=== PATIENT | female | born 1950 | race Caucasian/White ===

== ENCOUNTER 2017-12-04 05:59 | Observation (INO) | payer MEDICARE, MEDICAID ==
[~2017-12-04] VITALS: Ht 160 cm; Wt 53.1 kg
[~2017-12-04 05:59] MED LIST changes: -ALB6.7R INH; -HYDR-4228 PO; -LORA-629 PO; -PRED20TA6 PO
[2017-12-04] MEDS ORDERED: LORA-629 PO (06:19)
[2017-12-04] MEDS ORDERED: HYDR-4228 PO ×2 (06:19→21:04)
--- NOTE | 2017-12-04 06:26 | ER Report ---
History and Physical Time Seen By MD: 06:26 Hx. of Stated Complaint: PATIENT HAS BEEN HAVING TROUBLE BREATHING FOR THE LAST DAY, HAS BEEN USING HER ALBUTEROL INHALER MORE FREQUENTLY BUT IT HASN'T BEEN HELPING HER. PATIENT HAS HX OF COPD. (BEATRIS WHITE MD) HPI/ROS CHIEF COMPLAINT: shortness of breath. HISTORY OF PRESENT ILLNESS: This is a 67 year old female. She is having shortness of breath over the last 24-48 hours. Increased use of albuterol during that time. This morning not helping as well. EMS provided a breathing treatment en route which helped. She takes Advair as well. No oral steroids. She still smokes and is trying to quit; currently at 1 ppd. No fever or chills. Chronic cough which is worse, but non-productive. Chest tightness, but no pain. REVIEW OF SYSTEMS: Constitutional: As above. Eyes: No vision changes. ENT: No sore throat. No congestion. Cardiovascular: As above. Respiratory: As above. Gastrointestinal: No abdominal pain. No nausea or vomiting. Genitourinary: No dysuria. Musculoskeletal: No musculoskeletal pain. Skin: No rashes. Neurological: No numbness. No weakness. (BEATRIS WHITE MD) Allergies: Coded Allergies: latex (Verified Adverse Reaction, Mild, 12/04/17) Home Meds Reported Medications Hydroxyzine Hcl (HYDROXYZINE HCL) 50 Mg Tablet, 25-50 MG PO HS Y for SLEEP 12/04/17 Loratadine (LORATADINE) 10 Mg Tablet, 10 MG PO QDAY 12/04/17 Hydroxyzine Hcl (HYDROXYZINE HCL) 50 Mg Tablet, 2 TAB PO HS 12/04/17 Methocarbamol (METHOCARBAMOL) 500 Mg Tablet, 1 TAB PO BID Y for MUSCLE SPASMS 08/06/17 Nystatin (Nystatin) 100,000 Unit/Ml Oral.susp, 1 ML PO QDAY Y for THRUSH 08/06/17 Gabapentin (GABAPENTIN) 300 Mg Capsule, 300 MG PO BID 08/06/17 Fluticasone/Salmeterol (ADVAIR HFA 115-21 MCG INHALER) 12 Gm Hfa.aer.ad, 1-2XD 08/06/17 Montelukast Sodium (MONTELUKAST SODIUM) 10 Mg Tablet, 1 TAB PO QDAY 08/06/17 Tiotropium [place] (Spiriva Respimat) 4 Gm Mist.inhal, DAILY 08/06/17 Venlafaxine Hcl (EFFEXOR XR) 150 Mg Cap.er.24h, 300 MG PO QDAY 08/06/17 Discontinued Reported Medications Loratadine (LORATADINE) 10 Mg Tablet 08/06/17 Hydroxyzine Pamoate (HYDROXYZINE PAMOATE) 50 Mg Capsule, 1 PO QDAY for Anxiety 08/06/17 Discontinued Scripts Lorazepam (ATIVAN) 0.5 Mg Tablet, 0.5 MG PO TID Y for ANXIETY, #15 Prov:SALVATORE MONTEIRO DO 08/06/17 Prednisone 10 Mg Tab (PREDNISONE 10 MG TAB) 10 Mg Tablet, 10 MG PO QDAY Y for reduce lung inflammation, #9 2 tabs daily for 3 days 1 tab daily for 3 days Prov:SALVATORE MONTEIRO DO 08/06/17 Cefuroxime Axetil (CEFUROXIME) 250 Mg Tablet, 250 MG PO BID for infection, #14 TAB Prov:SALVATORE MONTEIRO DO 08/06/17 Reviewed Nurses Notes: Yes (BEATRIS WHITE MD) Hx Smoking: Yes (1-2 PPD) Smoking Status: Current: Every Day Smoker Exposure to Second Hand Smoke?: Yes Hx Substance Use Disorder: Yes Hx Alcohol Use: Yes (RECOVERING ALCOHOLIC) (BEATRIS WHITE MD) Constitutional Vital Sign - Last 24 Hours 12/04/17 12/04/17 12/04/17 12/04/17 06:01 06:10 06:14 06:15 Temp 97.0 Pulse 99 ??? Resp 28 B/P (MAP) 192/89 154/105 (121) Pulse Ox 88 95 O2 Delivery Nasal Cannula O2 Flow Rate 3.0 12/04/17 12/04/17 12/04/17 12/04/17 06:29 06:30 06:35 06:35 Pulse 89 85 Resp 28 B/P (MAP) 153/91 (111) Pulse Ox 94 91 O2 Delivery Nasal Cannula O2 Flow Rate 3.0 12/04/17 12/04/17 12/04/17 12/04/17 06:44 06:45 06:47 07:15 Pulse 86 85 18 B/P (MAP) 151/79 (103) 167/79 (108) Pulse Ox 98 312/04/17 12/04/17 12/04/17 07:30 07:45 08:00 08:03 Pulse 87 B/P (MAP) 163/84 (110) 170/86 (114) 159/80 (106) Pulse Ox 91 91 O2 Delivery Nasal Cannula O2 Flow Rate 3.0 12/04/17 12/04/17 12/04/17 12/04/17 08:03 08:08 08:15 08:35 Pulse 89 87 Resp 16 16 B/P (MAP) 162/78 (106) 162/75 (104) 12/04/17 12/04/17 12/04/17 12/04/17 09:00 09:12 09:12 09:30 Pulse 90 92 91 Resp 16 Pulse Ox 93 91 98 O2 Delivery Nasal Cannula O2 Flow Rate 3.0 12/04/17 12/04/17 12/04/17 12/04/17 09:35 09:55 10:00 10:15 Pulse 94 101 Resp 16 B/P (MAP) 173/77 (109) 174/92 (119) 167/74 (105) 12/04/17 12/04/17 12/04/17 12/04/17 10:30 10:45 11:00 11:19 Pulse 94 94 98 Resp 16 B/P (MAP) 147/69 (95) 150/68 (95) 135/78 (97) Pulse Ox 95 93 12/04/17 12/04/17 12/04/17 12/04/17 11:19 11:21 11:21 11:30 Pulse 93 92 Resp 16 Pulse Ox 90 97 92 O2 Delivery Nasal Cannula Nasal Cannula O2 Flow Rate 3.0 3.0 12/04/17 12/04/17 11:32 11:45 Pulse 89 B/P (MAP) 146/77 (100) 163/77 (105) Pulse Ox 90 (VERONICA CALDERA MD) Physical Exam General Appearance: The patient is alert. No acute distress. Eyes: Pupils are equal, round. No pallor, injection or icterus. ENT: Mucous membranes are moist. Normal oral mucosa. Posterior oropharynx is normal. Neck: Supple and non tender. No lymphadenopathy. Respiratory: Lungs with rhonchi and expiratory wheezing. No retractions or accessory muscle use. Cardiovascular: Regular rate and rhythm. Has a chronic systolic murmur. Normal capillary refill. No edema. Gastrointestinal: Abdomen is soft, nontender. Nondistended. Normal active bowel sounds. Neurological: Alert and oriented x3. No focal neurologic deficits Skin: Warm and dry. DIFFERENTIAL DIAGNOSIS: After history and physical exam, differential diagnosis was considered for shortness of breath including but not limited to pulmonary infectious process, COPD, asthma, pulmonary embolus and congestive heart failure. ([facility] Medical Decision Making Data Points Result Diagram: 12/04/17 0650 12/04/17 0650 Laboratory Hematology Test 12/04/17 06:50 12/04/17 08:27 Red Blood Count 4.69 M/uL (4.17-5.56) Mean Corpuscular Volume 87.1 fL (80.0-96.0) Mean Corpuscular Hemoglobin 29.9 pg (26.0-33.0) Mean Corpuscular Hemoglobin Concent 34.4 g/dL (32.0-36.0) Red Cell Distribution Width 13.5 % (11.5-14.5) Mean Platelet Volume 7.8 fL (7.2-11.1) Neutrophils (%) (Auto) 69.4 % (39.4-72.5) Lymphocytes (%) (Auto) 18.9 % (17.6-49.6) Monocytes (%) (Auto) 9.4 % (4.1-12.4) Eosinophils (%) (Auto) 1.5 % (0.4-6.7) Basophils (%) (Auto) 0.8 % (0.3-1.4) Nucleated RBC Relative Count (auto) 0.0 /100WBC Neutrophils # (Auto) 5.6 K/uL (2.0-7.4) Lymphocytes # (Auto) 1.5 K/uL (1.3-3.6) Monocytes # (Auto) 0.8 K/uL (0.3-1.0) Eosinophils # (Auto) 0.1 K/uL (0.0-0.5) Basophils # (Auto) 0.1 K/uL (0.0-0.1) Nucleated RBC Absolute Count (auto) 0.00 K/uL Sodium Level 134 mmol/L (137-145) Potassium Level 4.2 mmol/L (3.5-5.0) Chloride Level 92 mmol/L (98-107) Carbon Dioxide Level 33 mmol/L (22-31) Blood Urea Nitrogen 15 mg/dl (7-18) Creatinine 0.60 mg/dl (0.52-1.04) Glomerular Filtration Rate Calc > 60.0 Random Glucose 102 mg/dl (75-110) Calcium Level 10.0 mg/dl (8.4-10.2) Total Bilirubin 0.4 mg/dl (0.2-1.3) Aspartate Amino Transf (AST/SGOT) 28 U/L (0-35) Alanine Aminotransferase (ALT/SGPT) 35 U/L (0-56) Alkaline Phosphatase 87 U/L (0-126) Troponin I < 0.012 ng/ml Total Protein 8.3 gm/dl (6.3-8.2) Albumin 4.3 g/dl (3.5-5.0) Urine Color Yellow Urine Clarity Clear Urine pH 6.0 pH (4.8-9.5) Urine Specific [place] 1.010 Urine Protein Negative mg/dL (NEGATIVE) Urine Glucose (UA) Negative mg/dL (NEGATIVE) Urine Ketones Negative mg/dL (NEGATIVE) Urine Blood Negative (NEGATIVE) Urine Nitrite Negative (NEGATIVE) Urine Bilirubin Negative (NEGATIVE) Urine Urobilinogen Negative mg/dL (0.2-1.9) Urine Leukocyte Esterase Trace (NEGATIVE) Urine RBC <1 /HPF (0-2/HPF) Urine WBC 2 /HPF (0-5/HPF) Urine Squamous Epithelial Cells None /LPF (</=FEW) Urine Transitional Epithelial Cells Moderate /LPF (NONE-FEW) Urine Bacteria Few /HPF (NONE-FEW) Urine Hyaline Casts Few /LPF (NONE-FEW) Urine Mucus None /HPF (NONE-FEW) Chemistry Test 12/04/17 06:50 12/04/17 08:27 White Blood Count 8.0 k/uL (4.5-11.0) Red Blood Count 4.69 M/uL (4.17-5.56) Hemoglobin 14.0 g/dL (12.0-16.0) Hematocrit 40.8 % (34.0-47.0) Mean Corpuscular Volume 87.1 fL (80.0-96.0) Mean Corpuscular Hemoglobin 29.9 pg (26.0-33.0) Mean Corpuscular Hemoglobin Concent 34.4 g/dL (32.0-36.0) Red Cell Distribution Width 13.5 % (11.5-14.5) Platelet Count 164 K/uL (150-450) Mean Platelet Volume 7.8 fL (7.2-11.1) Neutrophils (%) (Auto) 69.4 % (39.4-72.5) Lymphocytes (%) (Auto) 18.9 % (17.6-49.6) Monocytes (%) (Auto) 9.4 % (4.1-12.4) Eosinophils (%) (Auto) 1.5 % (0.4-6.7) Basophils (%) (Auto) 0.8 % (0.3-1.4) Nucleated RBC Relative Count (auto) 0.0 /100WBC Neutrophils # (Auto) 5.6 K/uL (2.0-7.4) Lymphocytes # (Auto) 1.5 K/uL (1.3-3.6) Monocytes # (Auto) 0.8 K/uL (0.3-1.0) Eosinophils # (Auto) 0.1 K/uL (0.0-0.5) Basophils # (Auto) 0.1 K/uL (0.0-0.1) Nucleated RBC Absolute Count (auto) 0.00 K/uL Glomerular Filtration Rate Calc > 60.0 Calcium Level 10.0 mg/dl (8.4-10.2) Total Bilirubin 0.4 mg/dl (0.2-1.3) Aspartate Amino Transf (AST/SGOT) 28 U/L (0-35) Alanine Aminotransferase (ALT/SGPT) 35 U/L (0-56) Alkaline Phosphatase 87 U/L (0-126) Troponin I < 0.012 ng/ml Total Protein 8.3 gm/dl (6.3-8.2) Albumin 4.3 g/dl (3.5-5.0) Urine Color Yellow Urine Clarity Clear Urine pH 6.0 pH (4.8-9.5) Urine Specific [place] 1.010 Urine Protein Negative mg/dL (NEGATIVE) Urine Glucose (UA) Negative mg/dL (NEGATIVE) Urine Ketones Negative mg/dL (NEGATIVE) Urine Blood Negative (NEGATIVE) Urine Nitrite Negative (NEGATIVE) Urine Bilirubin Negative (NEGATIVE) Urine Urobilinogen Negative mg/dL (0.2-1.9) Urine Leukocyte Esterase Trace (NEGATIVE) Urine RBC <1 /HPF (0-2/HPF) Urine WBC 2 /HPF (0-5/HPF) Urine Squamous Epithelial Cells None /LPF (</=FEW) Urine Transitional Epithelial Cells Moderate /LPF (NONE-FEW) Urine Bacteria Few /HPF (NONE-FEW) Urine Hyaline Casts Few /LPF (NONE-FEW) Urine Mucus None /HPF (NONE-FEW) Urinalysis Test 12/04/17 08:27 Urine Color Yellow Urine Clarity Clear Urine pH 6.0 pH (4.8-9.5) Urine Specific [place] 1.010 Urine Protein Negative mg/dL (NEGATIVE) Urine Glucose (UA) Negative mg/dL (NEGATIVE) Urine Ketones Negative mg/dL (NEGATIVE) Urine Blood Negative (NEGATIVE) Urine Nitrite Negative (NEGATIVE) Urine Bilirubin Negative (NEGATIVE) Urine Urobilinogen Negative mg/dL (0.2-1.9) Urine Leukocyte Esterase Trace (NEGATIVE) Urine RBC <1 /HPF (0-2/HPF) Urine WBC 2 /HPF (0-5/HPF) Urine Squamous Epithelial Cells None /LPF (</=FEW) Urine Transitional Epithelial Cells Moderate /LPF (NONE-FEW) Urine Bacteria Few /HPF (NONE-FEW) Urine Hyaline Casts Few /LPF (NONE-FEW) Urine Mucus None /HPF (NONE-FEW) (VERONICA CALDERA MD) EKG/Imaging EKG Interpretation 12 lead EKG: Rhythm: normal sinus rhythm, rate 84 [place]: normal QRS: normal ST segments: Nonspecific flattening, significant artifact (BEATRIS WHITE MD) Imaging FACILITY: [facility] - [place] PATIENT NAME: Olimpia Wyatt : 1950 MR: [id number] V: [id number] EXAM DATE: ORDERING PHYSICIAN: BEATRIS WHITE TECHNOLOGIST: Location: [facility] [place] Patient: Olimpia Wyatt : 1950 Visit/Account:[id number] Date of Sevice: 12/04/2017 2 VIEWS CHEST INDICATION: Respiratory distress. History of COPD. COMPARISON: October 09, 2016. FINDINGS: Heart size within normal limits. Calcification within the aortic knob. There is no focal infiltrate or lobar consolidation. Hyperexpansion the lungs with chronic interstitial changes. There is no pneumothorax or pleural effusion. IMPRESSION: 1. No acute cardiopulmonary process. 2. Hyperexpansion of the lungs with chronic interstitial changes compatible with history of COPD. Report Dictated By: Jose Dhillon MD at 12/04/2017 7:19 AM Report E-Signed By: Jose Dhillon MD at 12/04/2017 7:20 AM WSN:[id number] (VERONICA CALDERA MD) ED Course/Re-evaluation Clinical Indication for ER IV: IV Access ([facility] ED Course 12/04/2017 8:12:49 am evaluated patient after 2nd nebulizer breathing treatment. She is still doing some pursed lip breathing and only able to talk in 3-4 word sentences without taking a breath. According to the respiratory therapist her lungs sound improved from when she arrived in the emergency department. Patient has received 2 DuoNeb at this time along with 125mg of solumedrol. Spo2 on 95% on O2 by [place]. Plan will be to ambulate patient in 15-20 minutes with pulse ox Re-evaluation 12/04/2017 8:56:45 am patient was ambulated at this time with her normal home oxygen. She was able to walk approximately 25 feet and then saturation dropped to 74% on ambulatory pulse ox. Patient remained consistently in the mid 70s while in the waiting back to the room. Her saturation improved once exertion was discontinued. We will give one more breathing treatment and again try to inflate the patient. If she fails ambulation I suspect patient may require admission for COPD exacerbation 12/04/2017 9:15:19 am peak flow 60 L/m which is 16% of predicted. Decision to Disposition Date: Dec 04, 2017 Decision to Disposition Time: 10:30 (VERONICA CALDERA MD) Depart Departure Latest Vital Signs Vital Signs Date Time Temp Pulse Resp B/P (MAP) Pulse Ox O2 Delivery O2 Flow Rate FiO2 12/04/17 11:45 89 163/77 (105) 90 12/04/17 11:21 16 12/04/17 11:21 Nasal Cannula 3.0 12/04/17 06:01 97.0 (VERONICA CALDERA MD) Impression: Primary Impression: COPD exacerbation Condition: Improved Disposition: Admitted from ER (to Dr Avila) Referrals: TESSY KEATING (PCP) BEATRIS WHITE MD Dec 04, 2017 06:26 VERONICA CALDERA MD Dec 04, 2017 07:50
[2017-12-04] MEDS ORDERED: ALBUTEROL/IPRATROPIUM 3 ML NEB NEB ONE ×3 (06:35→09:00)
[2017-12-04] MEDS ORDERED: methylPREDNIS SUCC 125 MG/2ML IVP ONE (06:35)
--- NOTE | 2017-12-04 06:46 | EKG ---
FACILITY: [facility] - [place] PATIENT NAME: LESLEY SWEENEY : [id number] MR: [id number] V: [id number] EXAM DATE: ORDERING PHYSICIAN: BEATRIS WHITE TECHNOLOGIST: Domingo Greer Reason : Blood Pressure : / mmHG Vent. Rate : 084 BPM Atrial Rate : 084 BPM P-R Int : 166 ms QRS Dur : 072 ms QT Int : 356 ms P-R-T Axes : 081 042 050 degrees QTc Int : 420 ms Normal sinus rhythm Possible Left atrial enlargement Possible Anterolateral infarct , old (cited on or before 04-DEC-2017) When compared with ECG of 06-AUG-2017 18:22, R progression from V1-V6 is much more prominent now. Confirmed by SHEN BEATTY ([id number]) on 12/04/2017 1:35:12 PM Referred By: Confirmed By:SHEN BEATTY
[2017-12-04 07:10] LABS: PLATELET COUNT, AUTOMATED 164 K/uL (150-450)
--- NOTE | 2017-12-04 07:25 | RADIOLOGY IMAGING REPORT ---
FACILITY: [facility] - [place] PATIENT NAME: Olimpia Wyatt : 1950 MR: [id number] V: [id number] EXAM DATE: ORDERING PHYSICIAN: BEATRIS WHITE TECHNOLOGIST: [place] [facility] [place]limpia Wyatt : 1950 Visit/Account:[id number] Date of Sevice: 12/04/2017 2 VIEWS CHEST INDICATION: Respiratory distress. History of COPD. COMPARISON: October 09, 2016. FINDINGS: Heart size within normal limits. Calcification within the aortic knob. There is no focal infiltrate or lobar consolidation. Hyperexpansion the lungs with chronic intersti tial changes. There is no pneumothorax or pleural effusion. IMPRESSION: 1. No acute cardiopulmonary process. 2. Hyperexpansion of the lungs with chronic interstitial changes compatible with history of COPD. Report Dictated By: Jose Dhillon MD at 12/04/2017 7:19 AM Report E-Signed By: Jose Dhillon MD at 12/04/2017 7:20 AM WSN:[id number]
[2017-12-04] MEDS ORDERED: ALBUTEROL 2.5 MG/0.5ML ER ONLY NEB ONE ×3 (09:05→13:10)
[2017-12-04] MEDS ORDERED: ALBUTEROL 2.5 MG/3 ML NEB ONE (09:07)
[2017-12-04] MEDS ORDERED: TIOTROPIUM BROM INH 18 MCG/CAP INH ONE (13:10)
[2017-12-04] MEDS ORDERED: SALMETEROL/FLUTIC 250/50 1 INH INH ONE (13:10)
[2017-12-04 14:33] VITALS: BP 160/73
[2017-12-04] MEDS ORDERED: ALBUTEROL 2.5 MG/3 ML NEB NEB PRN (15:40)
[2017-12-04] MEDS ORDERED: FLUSH 10 ML SYR IVP PRN (15:40)
[2017-12-04] MEDS ORDERED: ACETAMINOPHEN 325 MG TAB PO PRN (15:40)
[2017-12-04] MEDS ORDERED: SALINE 0.65% NAS SPR 44 ML BTL PRN (15:50)
--- NOTE | 2017-12-04 15:57 | History & Physical ---
History of Present Illness Chief Complaint Short of breath History of Present Illness 67yo female with PMHx significant for COPD, previous alcohol use/abuse (no alcohol for >18years). She reports increasing dyspnea, cough over the past several days. She has along history of cigarette smoking and continues to do so. She denies any fevers/chills. She denies any CP/palpitations. No orthopnea or PND. She denies any edema or weight gain. She was evaluated in the ER and found to be hypoxic with evidence of airway obstruction/reactivity. CXR showed hyperexpansion, but no infiltrate. She was given respiratory treatments with little improvement. She was recommended for admission. History Problems: (1) COPD (chronic obstructive pulmonary disease) Status: Chronic (2) Anxiety Status: Chronic Home Meds Reported Medications Loratadine (LORATADINE) 10 Mg Tablet, 10 MG PO QDAY 12/04/17 Hydroxyzine Hcl (HYDROXYZINE HCL) 50 Mg Tablet, 2 TAB PO HS 12/04/17 Methocarbamol (METHOCARBAMOL) 500 Mg Tablet, 1 TAB PO BID Y for MUSCLE SPASMS 08/06/17 Nystatin (Nystatin) 100,000 Unit/Ml Oral.susp, 1 ML PO QDAY Y for THRUSH 08/06/17 Gabapentin (GABAPENTIN) 300 Mg Capsule, 300 MG PO BID 08/06/17 Fluticasone/Salmeterol (ADVAIR HFA 115-21 MCG INHALER) 12 Gm Hfa.aer.ad, 1-2XD 08/06/17 Montelukast Sodium (MONTELUKAST SODIUM) 10 Mg Tablet, 1 TAB PO QDAY 08/06/17 Tiotropium [place] (Spiriva Respimat) 4 Gm Mist.inhal, DAILY 08/06/17 Venlafaxine Hcl (EFFEXOR XR) 150 Mg Cap.er.24h, 300 MG PO QDAY 08/06/17 Discontinued Reported Medications Loratadine (LORATADINE) 10 Mg Tablet 08/06/17 Hydroxyzine Pamoate (HYDROXYZINE PAMOATE) 50 Mg Capsule, 1 PO QDAY for Anxiety 08/06/17 Discontinued Scripts Lorazepam (ATIVAN) 0.5 Mg Tablet, 0.5 MG PO TID Y for ANXIETY, #15 Prov:SALVATORE MONTEIRO DO 08/06/17 Prednisone 10 Mg Tab (PREDNISONE 10 MG TAB) 10 Mg Tablet, 10 MG PO QDAY Y for reduce lung inflammation, #9 2 tabs daily for 3 days 1 tab daily for 3 days Prov:SALVATORE MONTEIRO DO 08/06/17 Cefuroxime Axetil (CEFUROXIME) 250 Mg Tablet, 250 MG PO BID for infection, #14 TAB Prov:SALVATORE MONTEIRO DO 08/06/17 Allergies: Coded Allergies: latex (Verified Adverse Reaction, Mild, 12/04/17) Patient History: Chronic bronchitis CHILD FH: emphysema FATHER, Hx Smoking: Yes (1-2 PPD) Smoking Status: Current: Every Day Smoker Exposure to Second Hand Smoke?: Yes Hx Alcohol Use: Yes (RECOVERING ALCOHOLIC - no alcohol for >18 years) Hx Substance Use Disorder: Yes Review of Systems Constitutional: No Fever, No Chills, No Night Sweats Neurological: No Syncope, No Weakness Eyes: No Vision Change, No Loss of Vision ENT: No Hearing Loss, No Sinus Congestion, No Sore Throat Cardiovascular: No Chest Pain, No Palpitations Respiratory: Shortness of Breath, Cough, Wheezing Gastrointestinal: No Nausea, No Vomiting, No Diarrhea Genitourinary: No Dysuria, No Hematuria Psychiatric: Anxiety Exam Vital Signs Vital Signs Date Time Temp Pulse Resp B/P (MAP) Pulse Ox O2 Delivery O2 Flow Rate FiO2 12/04/17 14:39 90 Nasal Cannula 4.0 12/04/17 14:33 98.5 94 18 160/73 (102) General Appearance: Alert, Awake Neuro: No Gross deficits Eyes: PERRLA ENT: Oropharynx Clear (dentures) Neck: No Masses Cardiovascular: Regular Rate and Rhythm (no murmur), No Edema, No JVD Respiratory: Other (diminished breath sounds bilaterally with soft expiratory wheezes/no rales) Chest: No Tenderness GI: Abd Soft and Non-Tender : No CVA Tenderness Lymph: No Adenopathy Extremities: Warm, Perfused Integumentary: Skin Intact without Lesion / Mass Psych: Alert & Oriented X3 Medical Decision Making Data Points Result Diagram: 12/04/17 0650 12/04/17 0650 Assessment and Plan Problems: (1) COPD exacerbation Status: Acute Assessment & Plan: Will admit for respiratory treatments, oxygen supplementation, steroids. It does not appear she has an acute infection. We did discuss tobacco cessation and she reports the understanding of needing to stop. Will provide her nicotine supplement as needed. Watch closely. (2) Anxiety Status: Chronic Assessment & Plan: Will continue her Effexor. Copies to: TESSY KEATING Venous Thromboembolism Antithrombotics Is Pt On Any Antithrombotics?: No (will ambulate/use DINO hose) Exam Sepsis Risk: No Definite Risk ANAND SOUSA MD Dec 04, 2017 15:57
[2017-12-04] MEDS ORDERED: VENLAFAXINE XR 75 MG CAPCR PO ONE (16:00)
[2017-12-04] MEDS ORDERED: GABAPENTIN 300 MG CAP PO ONE (16:00)
[2017-12-04] MEDS: NICOTINE POLACRILEX 2 MG GUM PO PRN ×3 (16:09→23:45)
[2017-12-04] MEDS: ALBUTEROL/IPRATROPIUM 3 ML NEB NEB SCH (17:31)
[2017-12-04 19:34] VITALS: BP 149/75
[2017-12-04] MEDS ORDERED: hydrOXYzine 25 MG TAB PO PRN (21:10)
[2017-12-04] MEDS: methylPREDNIS SUCC 125 MG/2ML IVP SCH (21:35)
[2017-12-04] MEDS: GABAPENTIN 300 MG CAP PO SCH (21:36)
[2017-12-05 05:28] VITALS: BP 160/85
[2017-12-05] MEDS: ALBUTEROL/IPRATROPIUM 3 ML NEB NEB SCH ×3 (06:11→13:29)
[2017-12-05] MEDS: NICOTINE POLACRILEX 2 MG GUM PO PRN (07:50)
[2017-12-05 07:53] VITALS: BP 144/74
[2017-12-05] MEDS ORDERED: NAPROXEN 375 MG TAB PO PRN (08:15)
[2017-12-05] MEDS: methylPREDNIS SUCC 125 MG/2ML IVP SCH (08:35)
[2017-12-05] MEDS: GABAPENTIN 300 MG CAP PO SCH (08:35)
[2017-12-05] MEDS ORDERED: VENLAFAXINE XR 75 MG CAPCR PO SCH (09:00)
[2017-12-05] MEDS ORDERED: MONTELUKAST SODIUM 10 MG TAB PO SCH (09:00)
[2017-12-05] MEDS ORDERED: LORATADINE 10 MG TAB PO SCH (09:00)
[2017-12-05] MEDS ORDERED: SALMETEROL/FLUTIC 250/50 1 INH INH SCH (10:30)
[2017-12-05] MEDS ORDERED: TIOTROPIUM BROM INH 18 MCG/CAP INH SCH (10:30)
[2017-12-05] MEDS ORDERED: PRED20TA6 PO (11:58)
--- NOTE | 2017-12-05 12:05 | Hospitalist Depart ---
Discharge Summary Reason for Hosp/Final Diag: (1) COPD exacerbation Status: Acute Hospital Course & Plan: She presented with increasing dyspnea, cough over the past several days prior to admission. There was no infiltrate on CXR, the WBC was wnl and she was afebrile. She had much improvement on respiratory treatments, oxygen supplementation, and IV steroids. Discussions were had regarding tobacco cessation and she reports the understanding of needing to stop. She will go home on a prednisone taper. (2) Anxiety Status: Chronic Hospital Course & Plan: Will continue her Effexor. She was told to discuss with her PCP about further treatment options for her anxiety because the patient doesn't feel like the anxiety is well controlled. Departure Weight (Pounds): 117 Result Diagram: 12/04/17 0650 12/04/17 0650 Item Value Date Time Total Bilirubin 0.4 mg/dl 12/04/17 0650 Aspartate Amino Transf (AST/SGOT) 28 U/L 12/04/17 0650 Alanine Aminotransferase (ALT/SGPT) 35 U/L 12/04/17 0650 Alkaline Phosphatase 87 U/L 12/04/17 0650 Troponin I < 0.012 ng/ml 12/04/17 0650 Total Protein 8.3 gm/dl H 12/04/17 0650 Albumin 4.3 g/dl 12/04/17 0650 Imaging CXR - 1. No acute cardiopulmonary process. 2. Hyperexpansion of the lungs with chronic interstitial changes compatible with history of COPD. EKG Vent. Rate : 084 BPM Atrial Rate : 084 BPM P-R Int : 166 ms QRS Dur : 072 ms QT Int : 356 ms P-R-T Axes : 081 042 050 degrees QTc Int : 420 ms Normal sinus rhythm Possible Left atrial enlargement Possible Anterolateral infarct , old (cited on or before 04-DEC-2017) When compared with ECG of 06-AUG-2017 18:22, R progression from V1-V6 is much more prominent now. Confirmed by SHEN BEATTY ([id number]) on 12/04/2017 1:35:12 PM Condition: Improved Discharge: Home Discharge Instructions Home Meds Active Scripts Albuterol Sulfate (PROVENTIL HFA) 6.7 Gm Inh, 2 PUFF INH Q4H Y for SHORTNESS OF BREATH, #1 INH Prov:PAL RIVAS MD 3/17/18 Prednisone (PREDNISONE) 20 Mg Tablet, 10-20 MG PO BIDBS, #11 1 pill twice a day for 3 days, then 1 pill a day for 3 days, and then 1/2 pill a day for 3 days Prov:PAL RIVAS MD 12/05/17 Reported Medications Hydroxyzine Hcl (HYDROXYZINE HCL) 50 Mg Tablet, 25-50 MG PO HS Y for SLEEP 12/04/17 Loratadine (LORATADINE) 10 Mg Tablet, 10 MG PO QDAY 12/04/17 Methocarbamol (METHOCARBAMOL) 500 Mg Tablet, 1 TAB PO BID Y for MUSCLE SPASMS 08/06/17 Nystatin (Nystatin) 100,000 Unit/Ml Oral.susp, 1 ML PO QDAY Y for THRUSH 08/06/17 Gabapentin (GABAPENTIN) 300 Mg Capsule, 300 MG PO BID 08/06/17 Fluticasone/Salmeterol (ADVAIR HFA 115-21 MCG INHALER) 12 Gm Hfa.aer.ad, BID 08/06/17 Montelukast Sodium (MONTELUKAST SODIUM) 10 Mg Tablet, 1 TAB PO QDAY 08/06/17 Tiotropium [place] (Spiriva Respimat) 4 Gm Mist.inhal, DAILY 08/06/17 Venlafaxine Hcl (EFFEXOR XR) 150 Mg Cap.er.24h, 300 MG PO QDAY 08/06/17 Discontinued Reported Medications Hydroxyzine Hcl (HYDROXYZINE HCL) 50 Mg Tablet, 2 TAB PO HS 12/04/17 Loratadine (LORATADINE) 10 Mg Tablet 08/06/17 Hydroxyzine Pamoate (HYDROXYZINE PAMOATE) 50 Mg Capsule, 1 PO QDAY for Anxiety 08/06/17 Discontinued Scripts Lorazepam (ATIVAN) 0.5 Mg Tablet, 0.5 MG PO TID Y for ANXIETY, #15 Prov:SALVATORE MONTEIRO DO 08/06/17 Prednisone 10 Mg Tab (PREDNISONE 10 MG TAB) 10 Mg Tablet, 10 MG PO QDAY Y for reduce lung inflammation, #9 2 tabs daily for 3 days 1 tab daily for 3 days Prov:SALVATORE MONTEIRO DO 08/06/17 Cefuroxime Axetil (CEFUROXIME) 250 Mg Tablet, 250 MG PO BID for infection, #14 TAB Prov:SALVATORE MONTEIRO DO 08/06/17 Diet: Regular Activity: As Tolerated Special Instructions: Go to the ER for worsening shortness of breath or fevers. Follow up with your PCP in 1-2 weeks. Stop smoking. Copies to: TESSY KEATING Venous Thromboembolism Antithrombotics Is Pt On Any Antithrombotics?: No (will ambulate/use DINO hose) PAL RIVAS MD Dec 05, 2017 12:04
[2017-12-05] MEDS ORDERED: ALB6.7R INH (12:26)
[2017-12-05] MEDS ORDERED: predniSONE 20 MG TAB PO SCH (17:00)
== END 2017-12-05 14:01 | disposition home or self-care (01) ==
LOC: ER 06:03 → INTOOBSV 11:51 → MED 11:51
PROVIDERS: ADMIT Internal Medicine; ATTEND Internal Medicine
DX: J44.1 Chronic obstructive pulmonary disease with (acute) exacerbation (principal); F41.9 Anxiety disorder, unspecified
CPT/HCPCS: 71046; 81001; 84484; 85025; 93005; 94640; 99285; A9270; G0378; J2930; J3535; J7611; J7613; J7620; 82040; 82247; 82310; 82374; 82435; 82565; 82947; 84075; 84132; 84155; 84295; 84450; 84460; 84520; 96374

== ENCOUNTER → 2017-12-04 | Outpatient (CLI) | payer MEDICARE, MEDICAID ==
[~2017-12-04] MED LIST: ALB6.7R INH; ALBU8.5H12 IH; AMOX-559 PO; AMOX500T10 PO; AZIT-18 PO; CEF300 PO; CEFU250T11 PO; CYCL-343 PO; DUL100/5PT INH; EFFEXOR; FLUT12HF2; FLUT1DIS27 IH; GABA-549 PO; HYDR-4228 PO; HYDR25CA83 PO; HYDR50CA48 PO; IBUP200C71 PO; LOR5/325; LORA-1455 PO; LORA-629; LORA-629 PO; LORA-799 PO; METH-278 PO; MONT10TA PO; MONT10TA4 PO; NEURONTIN PO; NYST100016 PO; ONDA4TAB PO; OXYC-865 PO; PER PO; PRE1 PO; PRED-1 PO; PRED20TA6 PO; TIOT4MIS2; TRAM-420 PO; VENL150C61 PO; [UNRECOGNIZED DRUG - CODE] TP
== END ==
LOC: AMB 05:30
PROVIDERS: ATTEND Nurse Practitioner
DX: R06.00 Dyspnea, unspecified (principal); F17.210 Nicotine dependence, cigarettes, uncomplicated; J44.9 Chronic obstructive pulmonary disease, unspecified; R09.02 Hypoxemia
CPT/HCPCS: A0425; A0427